=== PATIENT | male | born 2005 | race Caucasian/White ===

== ENCOUNTER 2024-11-12 16:25 | Emergency (ER) | payer OTHER, SELFPAY ==
[2024-11-12 16:29] VITALS: BP 127/93
[2024-11-12] MEDS: TORADOL 30 MG IV (16:36)
[2024-11-12 16:58] LABS: Hematocrit 38.1 % (39.0-52.0); Hemoglobin 13.1 g/dL (13.0-18.0); Mean Corp Hgb Conc. 34.4 g/dL (33.0-37.0); Mean Corpuscular Volume 87.2 fL (80.0-94.0); Nucleated Red Blood Cells % 0 % (-); Platelet Count 256 10^3/uL (130-400); Red Cell Dist. Width 12.0 % (11.5-14.5)
[2024-11-12 17:21] LABS: ALT (SGPT) 28 U/L (0-50); AST (SGOT) 21 U/L (17-59); Albumin 4.8 g/dl (3.5-5.0); Alkaline Phosphatase 105 U/L (38-126); Blood Urea Nitrogen 21 mg/dl (9-20); Calcium 9.9 mg/dl (8.4-10.2); Carbon Dioxide 24 mmol/L (22-30); Chloride 101 mmol/L (98-107); Glucose 104 mg/dl (70-99); Potassium 4.1 mmol/L (3.5-5.1); Sodium 134 mmol/L (135-145); Total Protein 7.5 g/dl (6.3-8.2); eGFR > 60.00
[2024-11-12] MEDS: MORPHINE SULFATE 4 MG IV (17:41)
[2024-11-12] MEDS: ZOFRAN 4 MG IV (17:41)
[2024-11-12] MEDS: NSS 1000 IV (17:43)
--- NOTE | 2024-11-12 18:25 | ED.GENMED ---
History of Present Illness
General
Chief Complaint: Flank Pain
Source: patient
Time Seen by Provider: 11/12/24 17:18
History of Present Illness
History of Present Illness:
19-year-old male with no significant past medical history presenting to the ER for evaluation of the sudden onset of right flank pain that began while he was driving home from work today around 3 PM, pain got so severe that he had to pull off to the
side of the road and proceeded to have 1 episode of nonbloody nonbilious emesis, patient also stating that he felt as if he needed to urinate but was unable to do so. On arrival patient still stating pain is a 10 out of 10, radiating into the right
lower groin and still with mild nausea although the nausea seems to be improving. Patient denies any history of similar, mother who is present with patient stating that multiple family members have had kidney stones in the past similar based
symptoms.
Past History
Past History
ED Past Medical History: Other (Lyme disease)
ED Past Surgical History: None
Social History
Tobacco: Non-smoker
Alcohol: Occasional
Drug: None
Personal: Single
Living: with family
Employment: Student
Review of Systems
Review of Systems
All Other Systems: ROS reviewed and negative except as documented in HPI and ROS
Phy Exam
Physical Exam
Physical Exam:
GENERAL: Alert , appears very uncomfortable, unable to sit still
EYE: clear conjunctiva b/l
HEAD: NCAT
ENT: o/p clr, mmm.
CARDIAC: Regular rate and rhythm .
LUNGS: Clear breath sounds bilaterally, no acute respiratory distress, no wheezes/rales/rhonchi
ABDOMEN: Soft, without focal tenderness, no r/g, moderate right CVA tenderness
NEUROLOGICAL: Alert and oriented
SKIN: Warm and dry, skin intact.
MUSCULOSKELETAL: No edema, well perfused.
PSYCH: Normal and appropriate interaction.
Scores
Heart Failure Risk
Heart Failure Risk Score: Not Applicable
Heart Score for Chest Pain Patients
STEMI patient?: Not applicable
Withdrawal Assessment of Alcohol
Withdrawal Assessment Completed?: Not applicable
Course
Orders/Labs/Results
Orders:
Orders
11/12/24 16:35
Ketorolac [Toradol] 30 mg .ROUTE .STK-MED ONE
11/12/24 16:36
Ketorolac [Toradol] 30 mg IV NOW STA
11/12/24 16:38
Complete Blood Count/With Diff Urgent
Comprehensive Metabolic Panel Urgent
11/12/24 17:31
0.9% Sodium Chloride 1000 ml [Nss] 1,000 ml IV BOLUS
Morphine Sulfate 4 mg IV NOW STA
Ondansetron Injectable [Zofran] 4 mg IV NOW STA
11/12/24 17:32
CT Abd/pel Without Iv Or Oral Urgent
Comment:
Reason For Exam: severe right flank pain
11/12/24 18:40
HYDROmorphone [Dilaudid] 0.5 mg IV NOW STA
Tamsulosin [Flomax] 0.4 mg PO NOW STA
11/12/24 19:09
Urinalysis Reflex To Culture Urgent
Date Specimen was Collected: 11/12/24
Time Specimen was Collected: 18:05
Urine Microscopic Reflex Cult Urgent
Abnormal Lab Results
11/12/24 11/12/24
16:38 19:09
WBC 12.2 H 10^3/uL
(4.8-10.8)
RBC 4.37 L 10^6/uL
(4.70-6.10)
Hct 38.1 L %
(39.0-52.0)
Abs Immat Gran (auto) 0.1 H 10^3/uL
(0-0.05)
Absolute Neuts (auto) 7.5 H 10^3/uL
(1.4-6.5)
Absolute Monos (auto) 1.2 H 10^3/uL
(0.1-0.6)
Monocytes % 9.6 H %
(1.7-9.3)
Sodium 134 L mmol/L
(135-145)
BUN 21 H mg/dl
(9-20)
Glucose 104 H mg/dl
(70-99)
Ur Occult Blood Reflex 2+ A
(Negative)
Urine RBC 11-15 A /HPF
(0-2)
Urine Bacteria (Reflex) Few A
(Negative)
Urine Albumin (Reflex) 1+ A
(Neg - Trace)
11/12/24 16:38
11/12/24 16:38
Vital Signs
Initial and Last Documented VS:
Initial Vital Signs
Temp Pulse Resp BP Pulse Ox
98.2 F 85 16 127/93 100
11/12/24 16:29 11/12/24 16:29 11/12/24 16:29 11/12/24 16:29 11/12/24 16:29
Last Documented Vital Signs
Temp Pulse Resp BP Pulse Ox
98.2 F 80 18 138/96 97
11/12/24 16:29 11/12/24 19:08 11/12/24 19:08 11/12/24 19:08 11/12/24 19:08
MDM/Problems Addressed
Differential Diagnosis Includes:
Renal/ureteral colic
Pyelonephritis/urinary tract infection
Musculoskeletal etiology
Dissection/aneurysm
MDM/Problems Addressed:
19-year-old male presenting to the ER for evaluation of a sudden onset of right flank pain accompanied with nausea/vomiting and a sensation of needing to urinate but being unable to do so. Patient appears very uncomfortable here, he did receive a
dose of Toradol in triage and while he states this did help slightly he is still having considerable pain. Will treat additional pain with 4 mg of morphine. Labs and CT imaging ordered. Disposition pending
*Radiology
Radiology exam reviewed: radiology read reviewed
*Pulse Oximetry
SaO2: 100
Oxygen Mode of Delivery: Room air
Patient hypoxic: no
*Critical Care Note
Total Time (30-74mins, 75-104mins- exclusive of procedures): Not Applicable
Comment
Comment:
Following the morphine patient did note improved pain. Awaiting urinalysis. Disposition pending
Patient Management
Escalation/DeEscalation of care consider admission/obs:
While patient initially had relief with morphine his pain did start to return so an additional half milligram of Dilaudid was ordered. This did provide patient with relief. His CT scan showed a 0.3 cm stone at the right UVJ. Urinalysis without
signs of infection. Patient feeling well to be discharged home. Pain medication and Flomax sent to pharmacy. Patient aware of return precautions to the ER. Information for urology provided.
ED Attending Note
-
Portions of this chart may have been created with voice recognition software.� Occasional wrong word or��sound alike� substitutions may have occurred due to the inherent limitations of voice recognition software.
Discharge Plan
Departure
Patient Disposition: Home (Routine Discharge)
Date of Disposition: 11/12/24
Time of Disposition: 19:38
Patient with high blood pressure during this ER visit?: Yes
Discharge Problem:
Ureterolithiasis
Instructions: Kidney Stones (DC)
Prescriptions:
New
tamsulosin [Flomax] 0.4 mg capsule
0.4 mg PO DAILY Qty: 10 0RF
ondansetron 4 mg tablet,disintegrating
4 mg PO TID PRN (Reason: nausea and vomiting) Qty: 10 0RF
naproxen 500 mg tablet
500 mg PO BID PRN (Reason: Pain) Qty: 15 0RF
Referrals:
Facundo Eng MD [Active, Urology]
Quan Abreu III, DO [Family Provider, Pediatrics]
Interventions
Interventions:
*Risk Screen - Suicide Last Done: 11/12/24 16:30
*General Assessment Last Done: 11/12/24 17:44
*Neglect/Abuse Screening Last Done: 11/12/24 16:30
*ED- Fall Risk Assessment Last Done: 11/12/24 17:44
*ED COVID-19 Vaccine History Last Done: 11/12/24 17:44
*Nursing Disposition Last Done: 11/12/24 19:59
NF-Nlzpsu-Iegmthnjpm Assessment Last Done: 11/12/24 17:44
ED-Male Genitourinary Assessment Last Done: 11/12/24 17:44
Discharge Date and Time
Discharge Date/Time: 11/12/24 19:59
Print Language: WALLISIAN
[2024-11-12] MEDS: FLOMAX 0.4 MG PO (19:04)
[2024-11-12] MEDS: DILAUDID 0.5 MG IV (19:04)
[2024-11-12 19:08] VITALS: BP 138/96
[2024-11-12 19:29] LABS: Urine Character Clear (Clear)
[2024-11-12 19:38] LABS: Urine Squamous Cell 0-2 /LPF (Few); Urine White Cell 0-2 /HPF (0-5)
== END 2024-11-12 19:59 | disposition home or self-care (01) ==
LOC: EMR 16:25
PROVIDERS: Emergency Medicine; Physician Assistant Medical; EMERGENCY PHYSICIAN Emergency Medicine; FAMILY PHYSICIAN Student in an Organized Health Care Education/Training Program
DX: N13.2 Hydronephrosis with renal and ureteral calculous obstruction (principal)
CPT/HCPCS: 99284; 96374; 96375 ×3; 96361; 74176; 80053; 81003; 81015; 85025

== ENCOUNTER → 2024-11-16 15:15 | Outpatient (REF) | payer OTHER, SELFPAY | LOC: RAD 15:15 | PROVIDERS: ATTENDING PHYSICIAN Specialist | DX: N20.0 Calculus of kidney (principal) | CPT/HCPCS: 74018 ==